=== PATIENT | female | born 1960 ===

== ENCOUNTER 2017-05-14 12:25 | Emergency (ER) | payer OTHER ==
[2017-05-14 12:31] VITALS: BP 124/81; TEMP 97.9; O2SAT 96
--- NOTE | 2017-05-14 12:57 | C.PDOC ---
History Of Present Illness Naomy Rasheed is a 56 year old female, with a past medical history of hypertension, asthma and diabetes, who presents to the emergency department complaining of cough onset for x3 weeks. Patient was seen by PMD on 05/06/17 and prescribed promethazine with no improvement of symptoms. She denies any fever or chills. No further medical complaints. PMD: Leo Valderrama Time Seen by Provider: 05/14/17 12:40 Chief Complaint (Nursing): Cough, Cold, Congestion History Per: Patient History/Exam Limitations: no limitations Onset/Duration Of Symptoms: Days (x3 weeks) Current Symptoms Are (Timing): Still Present Location Of Pain: None Associated Symptoms: Cough. denies: Fever, Chills Ear Symptoms: Bilateral: None Severity: Mild Pain Scale Rating Of: 0 Past Medical History Reviewed: Historical Data, Nursing Documentation, Vital Signs Vital Signs: Last Vital Signs Temp 97.9 F 05/14/17 12:28 Pulse 91 H 05/14/17 12:28 Resp 18 05/14/17 12:28 BP 124/81 05/14/17 12:28 Pulse Ox 96 05/14/17 13:50 - Medical History PMH: Asthma, Diabetes, HTN, Hypercholesterolemia, Hypothyroidism Surgical History: Denies: Endoscopy Family History: States: Unknown Family Hx - Social History Hx Tobacco Use: No Hx Alcohol Use: No Hx Substance Use: No - Immunization History Hx Tetanus Toxoid Vaccination: Yes Hx Influenza Vaccination: Yes Hx Pneumococcal Vaccination: Yes Review Of Systems Except As Marked, All Systems Reviewed And Found Negative. Constitutional: Negative for: Fever, Chills Respiratory: Positive for: Cough Physical Exam - Physical Exam Appears: Non-toxic, No Acute Distress Skin: Normal Color, Warm, Dry Head: Atraumatic, Normacephalic Eye(s): bilateral: Normal Inspection, PERRL, EOMI Ear(s): Bilateral: Normal Nose: Normal Throat: Normal Neck: Normal, Normal ROM, Supple Cardiovascular: Rhythm Regular Respiratory: Rales (on left lower lobe) Gastrointestinal/Abdominal: Normal Exam, Soft, No Tenderness Back: Normal Inspection, No CVA Tenderness Extremity: Normal ROM, No Pedal Edema, No Deformity, No Swelling Neurological/Psych: Oriented x3, Normal Speech ED Course And Treatment O2 Sat by Pulse Oximetry: 96 (RA) Pulse Ox Interpretation: Normal Medical Decision Making Medical Decision Making: Initial Impression: Cough Initial Plan: --Chest two views (pa/lat) [RAD] --reevaluation 13:45 CXR FINDINGS: LINES AND TUBES: None. LUNG AND PLEURA: There are low lung volumes. No focal consolidation. HEART AND MEDIASTINUM: The heart is not enlarged. The hilar and mediastinal contours are within normal limits. SKELETAL STRUCTURES: The bony structures are within normal limits for the patient's age. VISUALIZED UPPER ABDOMEN: Normal. OTHER FINDINGS: None. IMPRESSION: No active pulmonary disease.Low lung volumes may be related to poor inspiratory effort. Disposition - Disposition Referrals: Leo Valderrama MD [Non-Staff] - Disposition: HOME/ ROUTINE Disposition Time: 14:38 Condition: STABLE Additional Instructions: Follow up with your PMD within 1-2 days. Return to ED if feel worse. Prescriptions: Albuterol 0.083% [Albuterol Sulfate 3 Ml] 3 ml IH .Q4-6H #100 vial predniSONE [predniSONE Tab] 2 tab PO DAILY #8 tab Benzonatate [Tessalon Perles] 2 tab PO TID #60 sgl Albuterol HFA [Ventolin HFA 90 mcg/actuation (8 g)] 1 puff IH .Q4-6H #1 inhaler Azithromycin [Zithromax] 250 mg PO DAILY #4 tab Instructions: Acute Bronchitis (ED) Forms: GO[facility] ([place]an) Print Language: KHMER - Clinical Impression Clinical Impression: Bronchitis - Scribe Statement Bakari Zabala All medical record entries made by the Scribe were at my direction and personally dictated by me. I have reviewed the chart and agree that the record accurately reflects my personal performance of the history, physical exam, medical decision making, and the department course for this patient. I have also personally directed, reviewed, and agree with the discharge instructions and disposition.
[2017-05-14] MEDS: Albuterol-Ipratrop 3 mg / 0.5 (3 ml) UD IH SCH ×3 (13:45→14:11)
--- NOTE | 2017-05-14 13:47 | RAD ---
HISTORY: COMPARISON: 11/28/2015 TECHNIQUE: Chest PA and lateral FINDINGS: LINES AND TUBES: None. LUNG AND PLEURA: There are low lung volumes. No focal consolidation. HEART AND MEDIASTINUM: The heart is not enlarged. The hilar and mediastinal contours are within normal limits. SKELETAL STRUCTURES: The bony structures are within normal limits for the patient's age. VISUALIZED UPPER ABDOMEN: Normal. OTHER FINDINGS: None. IMPRESSION: No active pulmonary disease.Low lung volumes may be related to poor inspiratory effort.
[2017-05-14] MEDS ORDERED: Albuterol-Ipratrop 3 mg / 0.5 (3 ml) UD ONE (14:05)
[2017-05-14 14:51] VITALS: PULSE 100; RESP 19
== END 2017-05-14 15:00 | disposition home or self-care (01) ==
LOC: C.ER 12:25
DX: J40 Bronchitis, not specified as acute or chronic (principal)